=== PATIENT | male | born 1990 | race Caucasian/White ===

== ENCOUNTER 2017-02-21 11:35 | Emergency (ER) | payer OTHER, MEDICAID ==
[~2017-02-21] VITALS: Ht 154.9 cm; Wt 81.6 kg
[2017-02-21 11:35] VITALS: BP_SYST 129
[2017-02-21 12:23] VITALS: BP_SYST 129
== END 2017-02-21 12:23 | disposition home or self-care (01) ==
LOC: SED 11:35
DX: Z76.0 Encounter for issue of repeat prescription (principal)
CPT/HCPCS: 99283

== ENCOUNTER 2017-05-05 09:36 | Outpatient (CLI) | payer OTHER, MEDICAID | END 2017-05-05 18:00 | disposition home or self-care (01) | LOC: SCT 09:36 | PROVIDERS: ATTEND Psychiatry & Neurology Neurology with Special Qualifications in Child Neurology | DX: S09.90XA Unspecified injury of head, initial encounter (principal); G93.89 Other specified disorders of brain; X58.XXXA Exposure to other specified factors, initial encounter; Y93.89 Activity, other specified; Y92.89 Other specified places as the place of occurrence of the external cause; Y99.8 Other external cause status | CPT/HCPCS: 70450-TC ==

== ENCOUNTER 2017-10-20 04:03 | Emergency (ER) | payer OTHER, MEDICAID ==
[~2017-10-20] VITALS: Ht 154.9 cm; Wt 83.9 kg
[2017-10-20 04:03] VITALS: BP_SYST 129
[2017-10-20] MEDS ORDERED: ALBU8.5H8 INH (04:25)
[2017-10-20] MEDS ORDERED: PHENOBARBITAL PO (04:27)
[2017-10-20] MEDS ORDERED: IPRATROPIUM BROM 0.5 MG/2.5 ML VIAL.NEB (ATROVENT) IH ONE (04:30)
[2017-10-20] MEDS ORDERED: LevALBUTEROL HCL 1.25 MG/0.5 ML *CONC.* VIAL.NEB (XOPENEX CONC.) INH ONE ×2 (04:30→05:15)
[2017-10-20] MEDS ORDERED: PREDNISONE 20 MG TABLET PO ONE (04:30)
[2017-10-20] MEDS ORDERED: AMOXICILLIN 500 MG CAPSULE PO ONE (04:30)
[2017-10-20 05:42] VITALS: BP_SYST 126
== END 2017-10-20 05:42 | disposition home or self-care (01) ==
LOC: SED 04:03
DX: J45.901 Unspecified asthma with (acute) exacerbation (principal)
CPT/HCPCS: 94640; 99284; J7512